=== PATIENT | female | born 1970 | race Caucasian/White ===

== ENCOUNTER 2022-07-12 19:53 | Emergency (ER) | payer SELFPAY ==
[~2022-07-12] VITALS: Ht 160 cm; Wt 72.6 kg
[~2022-07-12 19:53] MED LIST: [UNRECOGNIZED DRUG - REMARK]
--- NOTE | 2022-07-12 20:45 | NUR ---
bibdaughter c/o mid abd pain since yesterday, been feeling "weak" since. Pt A/ox3. Tolerating R/A well with no resp distress. Amb with steady gait. Connected Pt to POX and monitor.
[2022-07-12] MEDS ORDERED: ONDANSETRON HCL/PF 4 MG/2 ML VIAL ONE (21:18)
--- NOTE | 2022-07-12 21:29 | NUR ---
URINE COLLECTED AND SENT TO LAB
--- NOTE | 2022-07-12 21:29 | NUR ---
LAC #18G S/L BLOOD COLLECTED AND SENT TO LAB
[2022-07-12] MEDS ORDERED: ONDANSETRON HCL/PF 4 MG/2 ML VIAL IVP ONE (21:30)
[2022-07-12 21:33] LABS: BASOPHILS % (AUTO) 0.6 % (0.0-2.0); EOSINOPHILS % (AUTO) 0.8 % (0.0-6.0); HEMATOCRIT 42 % (33-45); HEMOGLOBIN 13.5 g/dL (11.5-14.8); LYMPHOCYTES # (AUTO) 1.9 K/uL (0.8-4.8); LYMPHOCYTES % (AUTO) 26.9 % (20.0-44.0); MEAN CORPUSCULAR HGB CONC 32 g/dl (31.0-36.0); MEAN CORPUSCULAR VOLUME 83 fL (82-100); MONOCYTES # (AUTO) 0.5 K/uL (0.1-1.30); MONOCYTES % (AUTO) 6.9 % (2.0-12.0); NEUTROPHILS # (AUTO) 4.6 K/uL (1.8-8.9); NEUTROPHILS % (AUTO) 64.8 % (43.0-81.0); PLATELET COUNT (AUTO) 251 K/uL (150-450); RED BLOOD CELL COUNT(AUTO) 4.99 MIL/uL (4.0-5.2)
[2022-07-12 21:44] LABS: CALCIUM, SERUM 9.8 mg/dL (8.5-10.1); CREATININE 0.6 mg/dL (0.6-1.3); POTASSIUM 3.9 mmol/L (3.5-5.1)
[2022-07-12 21:48] LABS: ALBUMIN 3.9 g/dL (3.4-5.0); BILIRUBIN,DIRECT 0.1 mg/dL (0.0-0.2); BILIRUBIN,TOTAL 0.6 mg/dL (0.2-1.0); TOTAL PROTEIN, SERUM 7.4 g/dL (6.4-8.2)
[2022-07-12 21:52] LABS: BILIRUBIN,URINE NEGATIVE (NEGATIVE); COLOR,URINE YELLOW (YELLOW); LEUKOCYTE ESTERASE ,URINE NEGATIVE (NEGATIVE); NITRITE, URINE NEGATIVE (NEGATIVE); PH,URINE 6.5 (5.0-8.0); PROTEIN,URINE NEGATIVE (NEGATIVE); UGLUCOSE NEGATIVE (NEGATIVE); UROBILINOGEN,URINE 0.2 EU/dL (0.2)
[2022-07-12 22:09] LABS: BACTERIA,URINE None seen /HPF (None Seen); RBC,URINE 0-2 /HPF (0-2); WBC,URINE NONE SEEN /HPF (0-3)
[2022-07-12 22:10] LABS: SQUAMOUS EPITHELIAL CELL,UR 0-2 /HPF (None Seen)
[2022-07-12] MEDS ORDERED: IOHEXOL-300 100 ML VIAL IV ONE (23:01)
[2022-07-12] MEDS ORDERED: IV NS 0.9% 250 ML IV ONE (23:01)
[2022-07-12] MEDS ORDERED: CT SWABBABLE VALVE TRANS SET 1 EA INFUS.SET MC ONE (23:01)
--- NOTE | 2022-07-12 23:15 | NUR ---
PT RETURNED TO ER BED [address]
[2022-07-12] MEDS ORDERED: POLY119P2 PO (23:41)
[2022-07-12] MEDS ORDERED: DOCU-141 PO (23:41)
[2022-07-12] MEDS ORDERED: SENN-261 PO (23:41)
--- NOTE | 2022-07-12 23:56 | NUR ---
IV removed. Catheter intact and site benign. Pressure and 4x4 applied to site. No bleeding noted.Patient discharged to home in stable condition. Written and verbal after care instructions given. Patient verbalizes understanding of instruction.
[2022-07-13 00:36] VITALS: BP 155/70
== END 2022-07-13 00:36 | disposition home or self-care (01) ==
LOC: ER 19:55
DX: K59.00 Constipation, unspecified (principal); R10.13 Epigastric pain; R11.0 Nausea
CPT/HCPCS: 99285; 74177; 96374; 85025; 80048; 83690; 80076; 84703; 81001; 36415; 82962; J2405; J7050; Q9967